=== PATIENT | female | born 1935 | race Caucasian/White ===

== ENCOUNTER 2019-05-27 08:53 | Day surgery (SDC) | payer OTHER ==
[2019-05-23 11:45] VITALS: BMI 23.3
[2019-05-27] MEDS ORDERED: ONDANSETRON 4 MG/2 ML VIAL IVPUSH PRN (10:27)
[2019-05-27] MEDS ORDERED: oxyCODONE HCL 5 MG TABLET PO PRN ×2 (10:27)
[2019-05-27] MEDS ORDERED: LACTATED RINGERS SOLUTION 1,000 ML IV SCH (10:30)
[2019-05-27] MEDS ORDERED: LIDOCAINE HCL 1%, 10 MG/ML (20ML VIAL) ONE (10:37)
[2019-05-27] MEDS ORDERED: BUPIVACAINE HCL/PF 0.5% (5MG/ML) 10 ML VIAL ONE (10:37)
[2019-05-27] MEDS ORDERED: PROPOFOL 20 ML ONE ×2 (10:44)
[2019-05-27] MEDS ORDERED: MIDAZOLAM HCL 2 MG/2 ML SINGLE DOSE VIAL ONE (10:44)
[2019-05-27] MEDS ORDERED: ceFAZolin SODIUM 1 GM VIAL ONE (10:57)
[2019-05-27] MEDS ORDERED: ONDANSETRON 4 MG/2 ML VIAL ONE (10:57)
[2019-05-27] MEDS ORDERED: DEXAMETHASONE SOD PHOSPHATE 4 MG/1 ML VIAL ONE (10:57)
[2019-05-27] MEDS ORDERED: LIDOCAINE 1% P/F 10 MG/ML VIAL INF ONE (11:24)
[2019-05-27] MEDS ORDERED: BUPIVACAINE HCL/PF 0.5% (5 MG/ML) 30 ML VIAL IJ ONE (11:26)
--- NOTE | 2019-05-27 11:46 | OP ---
Operative Note - Note: Operative Date: 05/27/19 Pre-Operative Diagnosis: Right inguinal hernia Operation: Right inguinal hernia repair Post-Operative Diagnosis: Same as Pre-op Surgeon: Francisco Fine Hogshead Mat Inspector: Tito Houser Anesthesiologist/GLOBAL SALES EXECUTIVE: Madeline Boyd Anesthesia: General Operative Report Dictated: Yes
--- NOTE | 2019-05-27 11:47 | SURG ---
Surgery Manager Social Media Note Manager Social Media: Tito Houser PA-C Date of Service: 05/27/19 Diagnosis: Right inguinal hernia Procedure: Right inguinal hernia repair I was present for the entirety of the operative procedure. For further detail, please refer to operative report. Visit type - Case Type Case Type: Scheduled - Emergency Emergency Visit: No - New patient This patient is new to me today: Yes Date on this admission: 05/27/19 - Critical Care Critical Care patient: No
[2019-05-27 12:56] VITALS: PULSE 64; TEMP 98.3
--- NOTE | 2019-05-27 13:50 | OP ---
DATE OF OPERATION: 05/27/2019 PREOPERATIVE DIAGNOSIS: Right inguinal hernia. POSTOPERATIVE DIAGNOSIS: Right inguinal hernia. OPERATIVE PROCEDURE: Repair of the right inguinal hernia, direct, and excision of the round ligament. SURGEON: Francisco Fine MD ANESTHESIA: Local with sedation. The patient was brought to the operating room. Right groin was prepped and draped in the usual manner. Local with Marcaine was injected. Incision was made to identify the external oblique aponeurosis, which was opened. The round ligament was identified. It was taken down to the deep inguinal ring. That is where the hernial sac was identified. The round ligament with the sac was excised and the posterior fascia was then closed primarily with 2-0 Prolene and the external oblique aponeurosis was also closed with 2-0 Prolene in a continuous manner. The ilioinguinal nerve was identified and preserved and the subcutaneous tissue and skin were closed and patient went to the recovery room in stable condition. FRANCISCO FINE M.D. [id number] cc: Ruby Reyes MD
[2019-05-27] MEDS ORDERED: oxyCODONE HCL 5 MG TABLET ONE (14:05)
[2019-05-27 14:54] VITALS: BP 149/47
--- NOTE | 2019-05-29 17:49 | PATH ---
Surgical Pathology Report Patient Name: BELLE GILLESPIE [facility]. Rec. #: [id number] /Age/Gender: 1935 (Age: 84) / F Account: [id number] Location: [facility] Taken: 05/27/2019 Received: 05/27/2019 Reported: 05/29/2019 Physicians: Francisco Fine M.D. Specimen(s) Received RIGHT HERNIA SAC Clinical History Right inguinal hernia Final Diagnosis HERNIA SAC, RIGHT, INGUINAL HERNIA REPAIR: HERNIA SAC. Electronically Signed Ivonne Allred M.D. Gross Description Received in formalin labeled "right hernia sac," is a 5.0 x 2.5 x 1.1 cm webb rodney portion of fibromembranous tissue with attached fat, consistent with a hernia sac. Sectioning reveals focal solid webb-rodney parenchyma. Gas Scrubber Operator sections are submitted in one cassette. /05/28/2019 saudi/05/28/2019
== END 2019-05-27 14:40 | disposition home or self-care (01) ==
LOC: FASU 08:53
PROVIDERS: ATTEND Surgery Vascular Surgery
PROC: 0YQ50ZZ Repair Right Inguinal Region, Open Approach (ICD-10-PCS; principal; 2019-05-27 11:05)
DX: K40.90 Unilateral inguinal hernia, without obstruction or gangrene, not specified as recurrent (principal)
CPT/HCPCS: 94760

== ENCOUNTER 2021-12-05 14:27 | Emergency (ER) | payer OTHER ==
[2021-12-05 14:54] VITALS: BP 105/65; PULSE 67; TEMP 97.8; BMI 19.6
[2021-12-05] MEDS ORDERED: SODIUM CHLORIDE 0.9% 500 ML INFUS.BAG IV ONE ×2 (15:20→17:53)
[2021-12-05 16:43] LABS: BASO % 0.5 % (0-2.0); EOS % 0.9 % (0-4.5); HEMOGLOBIN 14.1 GM/dL (10.7-15.3); LYMPH % 45.1 % (8-40); MCHC 33.5 g/dl (32.0-36.0); MEAN CELL VOLUME 92.3 fl (80-96); MEAN PLT VOLUME 7.5 fl (7.5-11.1); MONO % 8.6 % (3.8-10.2); NEUT % 44.9 % (42.8-82.8); PLATELET COUNT 157 10^3/uL (134-434); RBC 4.55 M/mm3 (3.60-5.2); RDW 13.8 % (11.6-15.6); WHITE BLOOD COUNT 3.1 K/mm3 (4.0-10.0)
[2021-12-05 17:03] LABS: CHLORIDE 105 mmol/L (98-107); SODIUM 139 mmol/L (136-145)
[2021-12-05 17:05] LABS: ANION GAP 4 MMOL/L (8-16); BLOOD UREA NITROGEN 22.9 mg/dL (7-18); CALCIUM 8.9 mg/dL (8.5-10.1); CO2 30 mmol/L (21-32); LIPASE 257 U/L (73-393)
[2021-12-05 17:06] LABS: ALBUMIN 3.6 g/dl (3.4-5.0); GLUCOSE,RANDOM 96 mg/dL (74-106); MAGNESIUM 2.4 mg/dL (1.8-2.4)
[2021-12-05 17:08] LABS: CREATININE 0.8 mg/dL (0.55-1.3); PHOSPHOROUS 2.7 mg/dL (2.5-4.9); SGPT/ALT 36 U/L (13-61)
[2021-12-05 17:09] LABS: SGOT/AST 68 U/L (15-37)
[2021-12-05 17:10] LABS: BILIRUBIN,TOTAL 0.8 mg/dL (0.2-1); TOT PROT 6.4 g/dl (6.4-8.2)
[2021-12-05 17:11] LABS: ALK PHOS 54 U/L (45-117)
[2021-12-05 18:15] LABS: EPI CELLS 22 /uL (0-25.1); HYALINE CASTS 1 /uL (0-3.1); URINE APPEARANCE CLEAR; URINE BACTERIA 70 /uL (0-1359); URINE BILIRUBIN NEGATIVE (NEGATIVE); URINE COLOR YELLOW; URINE GLUCOSE (UA) NEGATIVE (NEGATIVE); URINE KETONE NEGATIVE (NEGATIVE); URINE LEUK ESTERASE 2+ (NEGATIVE); URINE NITRITE NEGATIVE (NEGATIVE); URINE PROTEIN NEGATIVE (NEGATIVE); URINE RBC 5 /uL (0-23.9); URINE UROBILINOGEN 0.2 mg/dL (0.2-1.0); URINE WBC 46 /uL (0-25.8)
[2021-12-05] MEDS ORDERED: DEXAMETHASONE SOD PHOSPHATE 10 MG/1 ML VIAL IVPUSH ONE (18:41)
[2021-12-05] MEDS ORDERED: ALBUTEROL SO4 2.5/IPRATROPIUM 0.5 INH SOL 3 ML VIAL.NEB. NEB ONE (19:41)
[2021-12-05] MEDS ORDERED: DEXAMETHASONE SOD PHOSPHATE 10 MG/1 ML VIAL ONE (19:41)
[2021-12-05] MEDS: ALBUTEROL SO4 2.5/IPRATROPIUM 0.5 INH SOL 3 ML VIAL.NEB. NEB SCH ×2 (19:50→19:51)
== END 2021-12-05 23:43 | disposition home or self-care (01) ==
LOC: JER 14:27
PROC: 3E0F7GC Introduction of Other Therapeutic Substance into Respiratory Tract, Via Natural or Artificial Opening (ICD-10-PCS; principal; 2021-12-05)
PROC: 3E033GC Introduction of Other Therapeutic Substance into Peripheral Vein, Percutaneous Approach (ICD-10-PCS; 2021-12-05)
DX: K51.90 Ulcerative colitis, unspecified, without complications (principal)
CPT/HCPCS: 36415; 71046-TC-FY; 71260-TC; 74177-TC; 76856-TC; 80053; 81003; 83690; 83735; 84100; 84443; 84484; 85025; 86140; 87086; 87804; 93005; 93010; 99285-25; C9803-CS; J1100; Q9967; U0003; U0005

== ENCOUNTER 2023-05-02 18:54 | Inpatient (IN) | payer OTHER ==
[2023-05-02 19:44] LABS: BASO % 0.4 % (0-2.0); EOS % 0.4 % (0-4.5); HEMATOCRIT 40.1 % (32.4-45.2); HEMOGLOBIN 14.1 GM/dL (10.7-15.3); LYMPH % 9.8 % (8-40); MCH 32.1 pg (25.7-33.7); MCHC 35.1 g/dl (32.0-36.0); MEAN CELL VOLUME 91.4 fl (80-96); MEAN PLT VOLUME 6.8 fl (7.5-11.1); MONO % 8.5 % (3.8-10.2); NEUT % 80.9 % (42.8-82.8); PLATELET COUNT 295 10^3/uL (134-434); RBC 4.39 M/mm3 (3.60-5.2); RDW 13.1 % (11.6-15.6); WHITE BLOOD COUNT 8.6 K/mm3 (4.0-10.0)
[2023-05-02 19:57] LABS: INR 1.02 (0.83-1.09); PROTHROMBIN TIME (PATIENT) 11.8 SEC (9.7-13.0)
[2023-05-02 20:00] LABS: ACTIVATED PTT 29.6 SECONDS (25.2-36.5)
[2023-05-02 20:29] LABS: EPI CELLS 14 /uL (0-25.1); HYALINE CASTS 1 /uL (0-3.1); PH,URINE 8.5 (5.0-8.0); URINE APPEARANCE CLOUDY; URINE BACTERIA 8227 /uL (0-1359); URINE BILIRUBIN NEGATIVE (NEGATIVE); URINE COLOR YELLOW; URINE GLUCOSE (UA) NEGATIVE (NEGATIVE); URINE KETONE NEGATIVE (NEGATIVE); URINE LEUK ESTERASE 3+ (NEGATIVE); URINE NITRITE POSITIVE (NEGATIVE); URINE PROTEIN 1+ (NEGATIVE); URINE RBC 2163 /uL (0-23.9); URINE WBC 3672 /uL (0-25.8)
[2023-05-02 21:12] LABS: POTASSIUM 4.2 mmol/L (3.5-5.1)
[2023-05-02 21:14] LABS: ALBUMIN 3.2 g/dl (3.4-5.0)
[2023-05-02 21:15] LABS: BLOOD UREA NITROGEN 21.9 mg/dL (7-18)
[2023-05-02 21:17] LABS: CREATININE 0.9 mg/dL (0.55-1.3)
[2023-05-02 21:19] LABS: TOT PROT 7.1 g/dl (6.4-8.2)
[2023-05-02 21:20] LABS: BILIRUBIN,TOTAL 0.9 mg/dL (0.2-1)
[2023-05-02] MEDS ORDERED: ASPIRIN 81 MG CHEWABLE TABLETS PO ONE (22:04)
[2023-05-02] MEDS ORDERED: ATORVASTATIN CA 80 MG TABLET (FP) PO ONE (22:04)
[2023-05-02] MEDS ORDERED: CEFTRIAXONE 1 GM in DEXTROSE 5%-WATER - 100 ML IVPB ONE (22:04)
[2023-05-02] MEDS ORDERED: ATORVASTATIN CA 80 MG TABLET (FP) ONE (22:18)
[2023-05-02] MEDS ORDERED: ASPIRIN 81 MG CHEWABLE TABLETS ONE (22:18)
[2023-05-02] MEDS ORDERED: CEFTRIAXONE 1 GM/50 ML BAG ONE (22:19)
[2023-05-02] MEDS: SODIUM CHLORIDE 1,000 ML IV SCH (22:34)
[2023-05-03] MEDS ORDERED: ACETAMINOPHEN 1000 MG/100 ML BAG IVPB ONE (01:33)
[2023-05-03] MEDS ORDERED: ACETAMINOPHEN INJECTION 100 ML IVPB ONE (02:02)
[2023-05-03 02:58] LABS: CHLORIDE 100 mmol/L (98-107); POTASSIUM 4.2 mmol/L (3.5-5.1); SODIUM 136 mmol/L (136-145)
[2023-05-03 02:59] LABS: CALCIUM 8.9 mg/dL (8.5-10.1)
[2023-05-03 03:00] LABS: ANION GAP 9 MMOL/L (8-16); BLOOD UREA NITROGEN 17.4 mg/dL (7-18); CO2 27 mmol/L (21-32); GLUCOSE,RANDOM 107 mg/dL (74-106)
[2023-05-03] MEDS ORDERED: ACETAMINOPHEN 325 MG TABLET (FP) PO PRN (09:01)
[2023-05-03 09:06] LABS: BASO % 0.8 % (0-2.0); EOS % 0.2 % (0-4.5); HEMATOCRIT 38.3 % (32.4-45.2); LYMPH % 12.6 % (8-40); MCH 31.7 pg (25.7-33.7); MEAN CELL VOLUME 93.5 fl (80-96); MEAN PLT VOLUME 7.5 fl (7.5-11.1); NEUT % 74.4 % (42.8-82.8); PLATELET COUNT 305 10^3/uL (134-434); RBC 4.09 M/mm3 (3.60-5.2); RDW 13.2 % (11.6-15.6); WHITE BLOOD COUNT 9.4 K/mm3 (4.0-10.0)
[2023-05-03] MEDS: CEFTRIAXONE 1 GM in DEXTROSE 5%-WATER - 50 ML IVPB SCH (10:06)
[2023-05-03] MEDS: SODIUM CHLORIDE 1,000 ML IV SCH (21:56)
[2023-05-03] MEDS ORDERED: DONEPEZIL HCL 10 MG TABLET (FP) PO SCH (22:00)
[2023-05-04 07:58] LABS: HEMATOCRIT 38.9 % (32.4-45.2); HEMOGLOBIN 13.6 GM/dL (10.7-15.3); MEAN CELL VOLUME 91.4 fl (80-96); MEAN PLT VOLUME 6.7 fl (7.5-11.1); PLATELET COUNT 303 10^3/uL (134-434); RBC 4.26 M/mm3 (3.60-5.2); RDW 13.4 % (11.6-15.6)
[2023-05-04 08:35] LABS: POTASSIUM 3.7 mmol/L (3.5-5.1)
[2023-05-04 08:41] LABS: BLOOD UREA NITROGEN 16.6 mg/dL (7-18); CALCIUM 8.3 mg/dL (8.5-10.1)
[2023-05-04 08:43] LABS: CREATININE 0.7 mg/dL (0.55-1.3)
[2023-05-04 08:44] LABS: BILIRUBIN,TOTAL 0.4 mg/dL (0.2-1); TOT PROT 6.1 g/dl (6.4-8.2)
[2023-05-04 08:56] LABS: ALBUMIN 2.5 g/dl (3.4-5.0)
[2023-05-04] MEDS: CEFTRIAXONE 1 GM in DEXTROSE 5%-WATER - 50 ML IVPB SCH (10:07)
[2023-05-04] MEDS ORDERED: ACETAMINOPHEN 325 MG TABLET (FP) PO PRN (14:35)
[2023-05-04] MEDS: SODIUM CHLORIDE 1,000 ML IV SCH (14:56)
[2023-05-04] MEDS: DONEPEZIL HCL 10 MG TABLET (FP) PO SCH (21:43)
[2023-05-05] MEDS: CEFTRIAXONE 1 GM in DEXTROSE 5%-WATER - 50 ML IVPB SCH (09:31)
[2023-05-05] MEDS: HEPARIN NA (PORCINE) 5,000 UNITS/ML 1ML VIAL SQ SCH ×2 (13:00→21:51)
[2023-05-05] MEDS: POLYETHYLENE GLYCOL (HEALTHYLAX) 3350 17 GM PACKET PO SCH (14:01)
[2023-05-05] MEDS: SODIUM CHLORIDE 1,000 ML IV SCH (14:29)
[2023-05-05 15:04] VITALS: RESP 18
[2023-05-05 20:26] VITALS: BMI 18.1
[2023-05-05] MEDS: DONEPEZIL HCL 10 MG TABLET (FP) PO SCH (21:51)
[2023-05-06] MEDS: HEPARIN NA (PORCINE) 5,000 UNITS/ML 1ML VIAL SQ SCH ×2 (10:14→22:06)
[2023-05-06] MEDS: CEFTRIAXONE 1 GM in DEXTROSE 5%-WATER - 50 ML IVPB SCH (10:14)
[2023-05-06] MEDS: POLYETHYLENE GLYCOL (HEALTHYLAX) 3350 17 GM PACKET PO SCH (10:15)
[2023-05-06] MEDS: DONEPEZIL HCL 10 MG TABLET (FP) PO SCH (22:07)
[2023-05-07] MEDS: CEFTRIAXONE 1 GM in DEXTROSE 5%-WATER - 50 ML IVPB SCH (09:47)
[2023-05-07] MEDS: POLYETHYLENE GLYCOL (HEALTHYLAX) 3350 17 GM PACKET PO SCH (09:48)
[2023-05-07] MEDS: HEPARIN NA (PORCINE) 5,000 UNITS/ML 1ML VIAL SQ SCH (09:48)
[2023-05-07 12:13] VITALS: BP 116/69; PULSE 75; TEMP 98.5
== END 2023-05-07 11:51 | disposition home or self-care (01) | DRG 689 ==
LOC: JER 18:54 → JERBED 22:25 → J4W 05-03 03:25 → OBSVTOIN 05-03 09:02 → J5S 05-04 14:20
PROVIDERS: ADMIT Internal Medicine; ATTEND Internal Medicine
DX: N39.0 Urinary tract infection, site not specified (principal); G93.41 Metabolic encephalopathy; K50.90 Crohn's disease, unspecified, without complications; F03.90 Unspecified dementia, unspecified severity, without behavioral disturbance, psychotic disturbance, mood disturbance, and anxiety; I10 Essential (primary) hypertension; B96.20 Unspecified Escherichia coli [E. coli] as the cause of diseases classified elsewhere
CPT/HCPCS: 36415; 70450-TC; 70496-TC; 70498-TC; 71045-TC-FY; 80048; 80053; 80061; 80307; 81003; 81401; 82140; 82550; 82607; 82962; 83036; 84443; 84484; 85025; 85027; 85610; 85730; 86780; 86850; 86900; 86901; 87040; 87086; 87186; 93005; 93010; 97116-GP; 97162-GP; 99285-25; G0378; J1644; Q9967

== ENCOUNTER 2023-09-28 03:44 | Day surgery (SDC) | payer OTHER ==
[2023-09-21 16:47] VITALS: BMI 20.5
[2023-09-28] MEDS ORDERED: BUPIVACAINE HCL/PF 0.5% (5MG/ML) 10 ML VIAL ONE (07:23)
[2023-09-28] MEDS ORDERED: LIDOCAINE HCL 1%, 10 MG/ML (20ML VIAL) ONE (07:23)
[2023-09-28 08:55] VITALS: PULSE 64
[2023-09-28] MEDS: BUPIVACAINE HCL/PF 0.5% (5 MG/ML) 30 ML VIAL IJ ONE (10:08)
[2023-09-28] MEDS ORDERED: ACETAMINOPHEN 500 MG TABLET (FP) PO PRN (10:40)
[2023-09-28 11:00] VITALS: BP 165/88; RESP 16; TEMP 96.8
== END 2023-09-28 11:20 | disposition home or self-care (01) ==
LOC: JASU-SURG 03:44
PROVIDERS: ATTEND Pain Medicine Pain Medicine
PROC: 3E0T33Z Introduction of Anti-inflammatory into Peripheral Nerves and Plexi, Percutaneous Approach (ICD-10-PCS; 2023-09-28)
PROC: 3E0T3BZ Introduction of Anesthetic Agent into Peripheral Nerves and Plexi, Percutaneous Approach (ICD-10-PCS; principal; 2023-09-28 10:30)
DX: M47.812 Spondylosis without myelopathy or radiculopathy, cervical region (principal)
CPT/HCPCS: 76000-TC-FY

== ENCOUNTER 2023-10-26 05:10 | Day surgery (SDC) | payer OTHER ==
[2023-10-18 17:32] VITALS: BMI 20.4
[2023-10-26] MEDS ORDERED: LIDOCAINE HCL/PF 1% SDV 5ML VIAL ONE (07:14)
[2023-10-26] MEDS ORDERED: BUPIVACAINE HCL/PF 0.5% (5MG/ML) 10 ML VIAL ONE (07:14)
[2023-10-26] MEDS: BUPIVACAINE HCL/PF 0.5% (5MG/ML) 10 ML VIAL IJ ONE ×2 (09:10)
[2023-10-26 09:32] VITALS: BP 157/81; PULSE 62; RESP 18; TEMP 98.3
[2023-10-26] MEDS ORDERED: ACETAMINOPHEN 500 MG TABLET (FP) PO PRN (11:33)
== END 2023-10-26 09:47 | disposition home or self-care (01) ==
LOC: JASU-SURG 05:10
PROVIDERS: ATTEND Pain Medicine Pain Medicine
PROC: 3E0T33Z Introduction of Anti-inflammatory into Peripheral Nerves and Plexi, Percutaneous Approach (ICD-10-PCS; 2023-10-26)
PROC: 3E0T3BZ Introduction of Anesthetic Agent into Peripheral Nerves and Plexi, Percutaneous Approach (ICD-10-PCS; principal; 2023-10-26 09:15)
DX: M47.812 Spondylosis without myelopathy or radiculopathy, cervical region (principal)
CPT/HCPCS: 76000-TC-FY

== ENCOUNTER 2024-08-28 10:12 | Emergency (ER) | payer OTHER ==
[2024-08-28 10:21] VITALS: BP 192/86; PULSE 63; RESP 20; TEMP 97.3; BMI 21.4
[2024-08-28 11:24] LABS: BASO % 0.2 % (0-2.0); EOS % 0.1 % (0-4.5); HEMATOCRIT 50.2 % (32.4-45.2); HEMOGLOBIN 16.5 GM/dL (10.7-15.3); LYMPH % 11.3 % (8-40); MCH 31.3 pg (25.7-33.7); MEAN CELL VOLUME 95.1 fl (80-96); MEAN PLT VOLUME 6.6 fl (7.5-11.1); MONO % 6.8 % (3.8-10.2); NEUT % 81.6 % (42.8-82.8); PLATELET COUNT 209 10^3/uL (134-434); RBC 5.28 M/mm3 (3.60-5.2); RDW 14.2 % (11.6-15.6); WHITE BLOOD COUNT 6.8 K/mm3 (4.0-10.0)
[2024-08-28 11:31] LABS: INR 0.78 (0.83-1.09)
[2024-08-28 11:34] LABS: ACTIVATED PTT 24.8 SECONDS (25.2-36.5)
[2024-08-28 11:41] LABS: POTASSIUM 3.8 mmol/L (3.5-5.1)
[2024-08-28 11:43] LABS: ALBUMIN 3.6 g/dl (3.4-5.0); BLOOD UREA NITROGEN 30.2 mg/dL (7-18); CALCIUM 9.3 mg/dL (8.5-10.1)
[2024-08-28 11:48] LABS: TOT PROT 7.3 g/dl (6.4-8.2)
== END 2024-08-28 12:46 | disposition left against medical advice (07) ==
LOC: JER 10:12
DX: R42 Dizziness and giddiness (principal); R26.81 Unsteadiness on feet; Z20.822 Contact with and (suspected) exposure to COVID-19
CPT/HCPCS: 0241U-QW; 36415; 70450-TC; 80053; 84484; 85025; 85610; 85730; 93005; 93010; 99285-25

== ENCOUNTER 2024-10-14 15:49 | Emergency (ER) | payer OTHER ==
[2024-10-14] MEDS ORDERED: ACETAMINOPHEN 325 MG TABLET (FP) ONE (16:22)
[2024-10-14] MEDS: ACETAMINOPHEN 325 MG TABLET (FP) PO ONE (16:26)
[2024-10-14 16:56] VITALS: BMI 23.4
[2024-10-14] MEDS: morphine CARPU-JECT 4 MG/1 ML DISP.SYRIN IVPUSH ONE ×2 (18:22→18:31)
[2024-10-14] MEDS ORDERED: MORPHINE SULFATE 2 MG/ML SYRINGE ONE ×2 (18:23→20:02)
[2024-10-14] MEDS ORDERED: DIPHTH,PERTUSS(ACELL),TET 0.5 ML DISP.SYRIN IM ONE (19:54)
[2024-10-14] MEDS: DIPHTH,PERTUSS(ACELL),TET 0.5 ML DISP.SYRIN IM ONE (20:00)
[2024-10-14] MEDS: morphine SULFATE 4 MG/ML VIAL IVPUSH ONE (20:05)
[2024-10-14 21:47] VITALS: BP 162/81; PULSE 73; RESP 16; TEMP 97.6
== END 2024-10-14 21:51 | disposition home or self-care (01) ==
LOC: JER 15:49
PROC: 3E033NZ Introduction of Analgesics, Hypnotics, Sedatives into Peripheral Vein, Percutaneous Approach (ICD-10-PCS; principal; 2024-10-14)
PROC: 3E033NZ Introduction of Analgesics, Hypnotics, Sedatives into Peripheral Vein, Percutaneous Approach (ICD-10-PCS; 2024-10-14)
PROC: 3E0234Z Introduction of Serum, Toxoid and Vaccine into Muscle, Percutaneous Approach (ICD-10-PCS; 2024-10-14)
DX: S02.92XA Unspecified fracture of facial bones, initial encounter for closed fracture (principal); S61.214A Laceration without foreign body of right ring finger without damage to nail, initial encounter; S61.212A Laceration without foreign body of right middle finger without damage to nail, initial encounter; R51.9 Headache, unspecified; Z23 Encounter for immunization; W19.XXXA Unspecified fall, initial encounter
CPT/HCPCS: 70450-TC; 70486-TC; 71045-TC-FY; 72125-TC; 72170-TC-FY; 73110-TC-RT-FY; 73130-TC-RT-FY; 90471; 90715; 96372; 96374; 96376; 99285-25